=== PATIENT | male | born 1960 | race Caucasian/White ===

== ENCOUNTER → 2020-09-30 13:26 | Outpatient (REF) | payer BC, SELFPAY | LOC: ANHLAB 13:26 | PROVIDERS: PCP Internal Medicine; Visit Provider Nurse Practitioner | DX: D49.2 Neoplasm of unspecified behavior of bone, soft tissue, and skin (principal) | CPT/HCPCS: 88305 ==

== ENCOUNTER → 2021-05-07 01:44 | Outpatient (CLI) | payer BC, SELFPAY ==
[2021-05-07 18:14] LABS: SARS-CoV-2 RNA PCR Negative
== END ==
PROVIDERS: PCP Internal Medicine; Visit Provider Internal Medicine
DX: Z20.822 Contact with and (suspected) exposure to COVID-19 (principal)
CPT/HCPCS: C9803; U0003; U0005

== ENCOUNTER 2021-07-18 14:23 | Outpatient (CLI) | payer BC, SELFPAY | END 2021-07-18 14:24 | disposition home or self-care (01) | PROVIDERS: PCP Internal Medicine; Visit Provider Otolaryngology | DX: H93.13 Tinnitus, bilateral (principal); H90.3 Sensorineural hearing loss, bilateral | CPT/HCPCS: 92557; 92567 ==

== ENCOUNTER 2021-10-02 07:38 | Outpatient (CLI) | payer BC, SELFPAY ==
--- NOTE | 2021-10-04 02:38 | WPDHOMESLEEP ---
Sleep Study - Home Unattended Date of Study: 10/02/21 Ordering Provider: Kwaku Mark MD Interpreting Provider: Yumiko Amezcua, DO Home Sleep Study Type: Apnea Link Air Height: 1.85 m Weight: 88.451 kg Body Mass Index: 25.7 Neck Circumference (inches): 16 [place]: 3 Reason for Sleep Study Witnessed apneas, unrefreshing sleep Sleep History The patient is a 61-year-old male with GERD and degenerative disc disease in lumbar spine that had a home sleep as ordered by his primary care for evaluation of sleep apnea. The patient rarely awakens from sleep short of breath. He occasionally awakens at night with heartburn, belching or. Frequently snores and is occasionally loud enough that others complain. He occasionally has trouble sleeping when he has a cold. He occasionally wakes up gasping for air throughout the night. He occasionally has breathing problems at night observed by himself or others. He rarely sweats excessively at night. Denies having heart palpitations or irregular heartbeat during the night. He denies falling asleep during the day as well as driving. He denies sleep paralysis, cataplexy and hypnagogic / hypnopompic hallucinations. He rarely has nightmares. He occasionally has thoughts racing through his mind. He denies feeling sad or depressed. He rarely has anxiety. He occasionally notices parts of his body jerks. He occasionally takes during the night he denies having crawling an aching feeling in his legs. He rarely has leg pain during the. He denies grinding his teeth during sleep and awakening with morning draw. He denies being bothered by pain during the day and being awakened by during the. He occasionally wakes feeling stiff in the morning. He rarely wakes up with for HD muscles. He rarely wakes up with pain the neck, spine and other joints. He goes to bed at 11:00 p.m. on both weekdays and weekends. It takes him a few minutes to fall asleep. He wakes up 2-3 times throughout the night for unknown reasons. It takes him 30-45 minutes of fall back asleep. He wakes up at 7:00 a.m. of both weekdays and weekends. He typically gets 6-7 hours of sleep per night. He will stay in bed for 10-15 minutes after waking up in the morning. He currently lives with his . He does not consume any caffeinated beverages within 2 hours of bedtime. He does not engage in physical exercise before bedtime. He will watch television before falling asleep. He does not take naps in the afternoon or the evening. He drinks 2 cups of caffeinated beverage per day. He will drink 2 beers per week. He denies tobacco or recreational drug use. [facility] Past Medical History Medical History Herniated disc Surgical History Surgical History H/O colonoscopy 2008 Family History Family History Father Family history of alcoholism Mother Dementia Grandparent Heart disease Social History Social History Smoking status: Never smoker Alcohol intake: current Alcohol use details: Beer 1-2 per week Substance use: never Substance use type: does not use Medications Home Medications Medication Instructions Recorded Confirmed Type multivitamin 1 tablet PO DAILY 05/03/19 08/12/21 History psyllium husk 0.4 gram capsule 0.4 g PO DAILY 08/06/20 08/12/21 History valacyclovir 1 gram tablet 1,000 mg PO Q12H #60 tablet 10/29/20 08/12/21 Rx cyclobenzaprine 10 mg tablet 10 mg PO TID #90 tablet 11/21/20 08/12/21 Rx cholecalciferol (vitamin D3) 50 50 mcg PO DAILY #1 cap 08/12/21 08/12/21 Rx mcg (2,000 unit) capsule rosuvastatin 5 mg tablet 5 mg PO DAILY #30 tablet 08/12/21 08/12/21 Rx efinaconazole 10 % topical 1 applic TOPICAL DAILY 336 Days #8 09/24/21 Rx solution with applicator ml
[2021-10-04 02:51] VITALS: BMI 25.7
== END 2021-10-03 11:15 | disposition home or self-care (01) ==
LOC: ANHCSM 07:39
PROVIDERS: PCP Internal Medicine; Visit Provider Internal Medicine
DX: G47.9 Sleep disorder, unspecified (principal); R06.81 Apnea, not elsewhere classified
CPT/HCPCS: 95806